=== PATIENT | female | born 1985 | race Caucasian/White ===

== ENCOUNTER 2016-08-02 01:17 | Emergency (ER) | payer MEDICAID ==
[~2016-08-02 01:17] MED LIST: Lidocaine 1% 20 ML MDV INFILT ONE
[2016-08-02] MEDS ORDERED: Cephalexin 500 MG Cap PO ONE (02:37)
[2016-08-02 03:23] VITALS: BP 125/82
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
--- NOTE | 2016-08-07 01:34 | ER ---
DATE SEEN: 08/02/2016 DIAGNOSES: 1. Traumatic laceration right inframalleolar lateral mid foot. Laceration repair. 2. Rory drain placed. /[id number] YAEL/MICHELLE
== END 2016-08-02 02:45 | disposition home or self-care (01) ==
LOC: FB.ED 01:17
DX: S91.311A Laceration without foreign body, right foot, initial encounter (principal); W23.1XXA Caught, crushed, jammed, or pinched between stationary objects, initial encounter
CPT/HCPCS: 12042; 99283; A4217; A9270; 12001; 12002; 16020

== ENCOUNTER 2017-04-09 00:07 | Emergency (ER) | payer MEDICAID ==
[2017-04-09] MEDS ORDERED: Amoxicillin/Clavulanate K 500-125 MG Tab PO ONE (00:44)
[2017-04-09 02:53] VITALS: BP 155/108
--- NOTE | 2017-04-09 04:16 | ER ---
DATE SEEN: 04/09/2017 CHIEF COMPLAINT: Body aches. HISTORY OF PRESENT ILLNESS: This is a 31-year-old female complaining of myalgias for 2-3 days, associated with left ear pain, nasal congestion, weakness, chills, and fever. REVIEW OF SYSTEMS: Mild sore throat. No nausea or vomiting. Feels weak. SOCIAL HISTORY: Smoker. PHYSICAL EXAMINATION: GENERAL: Afebrile, appears sick. EARS: External ears are normal. Canals are patent. The left TM is inflamed, bulging with bubbles. NECK: Supple with mild anterior cervical lymphadenitis. MOUTH: Oropharyngeal exam reveals mild tonsillar exudates on the left. CHEST: Clear. IMPRESSION: 1. Otitis media. 2. Viral syndrome, possibly influenza. PLAN: Amoxicillin 500 mg p.o. t.i.d. Fluids, rest, Tylenol as needed. Follow up in the office in 1 to 2 days if symptoms are not improved. /[id number] ANKUR/MICHELLE
== END 2017-04-09 00:50 | disposition home or self-care (01) ==
LOC: FB.ED 00:07
DX: H66.92 Otitis media, unspecified, left ear (principal); B34.9 Viral infection, unspecified
CPT/HCPCS: 99282; A9270